=== PATIENT | male | born 1940 | race Caucasian/White ===

== ENCOUNTER 2018-03-28 08:36 | Inpatient (IN) | payer MEDICARE, OTHER ==
[~2018-03-28] VITALS: Ht 180.3 cm; Wt 73.5 kg
[2018-03-28 09:40] VITALS: BP 114/63
[2018-03-28] MEDS ORDERED: ELIQUIS5 MG PO (09:58)
[2018-03-28] MEDS ORDERED: COZAAR 25 MG TA25 M2 PO (09:59)
[2018-03-28] MEDS ORDERED: COREG6.25 MG PO (09:59)
[2018-03-28] MEDS ORDERED: PROSCAR 5MG TABL5 MG PO (10:00)
[2018-03-28] MEDS ORDERED: ALDACTONE25 MG PO (10:00)
[2018-03-28] MEDS ORDERED: FLOMAX0.4 MG PO (10:01)
[2018-03-28] MEDS ORDERED: SIMVASTATIN40 MG PO (10:02)
[2018-03-28] MEDS ORDERED: ZOCOR20 MG PO (10:02)
[2018-03-28] MEDS ORDERED: LASIX 20 MG TAB20 MG PO (10:03)
[2018-03-28] MEDS ORDERED: CLARITIN10 MG PO (10:04)
[2018-03-28 10:14] LABS: HEMATOCRIT 41.6 % (42.0-52.0); HEMOGLOBIN 13.6 gm/dL (14.0-18.0); MCH 28.4 pg (26.0-34.0); MCHC 32.7 g/dL (28.0-37.0); MCV 86.9 fL (80.0-100.0); MPV 9.5 fl. (7.2-11.1); RBC 4.79 mil/uL (4.50-6.00); RDW-CV 15.7 % (10.5-14.5); WBC 8.1 thou/uL (4.0-11.0)
[2018-03-28 10:22] LABS: ANION GAP 4 mmol/L (7-16); BUN 18 mg/dL (7-18); CALCIUM 8.8 mg/dL (8.5-10.1); CHLORIDE 104 mmol/L (98-107); CO2 32 mmol/L (21-32); CREATININE 1.2 mg/dL (0.6-1.3); GLUCOSE 91 mg/dL (70-99); POTASSIUM 4.3 mmol/L (3.5-5.1); SODIUM 140 mmol/L (136-145)
[2018-03-28 10:26] LABS: ALBUMIN 3.3 g/dL (3.4-5.0); ALKALINE PHOSPHATASE 61 U/L (46-116); CHOLESTEROL 102 mg/dL (<200); HDL CHOLESTEROL 41 mg/dL (>40); LDL CHOLESTEROL 38 mg/dL (<100); SERUM ASSESSMENT Clear; SGOT 14 U/L (15-37); SGPT 26 U/L (30-65); TC:HDL 2.5 Ratio (Not establshd); TOTAL BILIRUBIN 0.5 mg/dL (<0.1-1.0); TOTAL PROTEIN 6.6 g/dL (6.4-8.2); TRIGLYCERIDE 115 mg/dL (<150); VLDL 23 mg/dL (<40)
--- NOTE | 2018-03-28 11:01 | NUR ---
PT IS A DIRECT ADMIT FROM CARDIOLOGY HERE FOR AMIODARONE LOADING, PT IS ALERT AND ORIENTED X 4 PT IS UP AD RAVI STEADY GAIT PT IS NOT A FALL RISK, PT IS AFIB ON THE MONITOR, ADMISSION DONE MEDS RECONCILED IV PLACED IN R AC, PT MAY HAVE A DEAN CARDIOVERSION 03/31/18/, WILL CONTINUE TO MONITOR
[2018-03-28 12:30] VITALS: BP 116/45
[2018-03-28 16:00] VITALS: BP 100/58
--- NOTE | 2018-03-28 17:17 | EKG ---
[place] [address] ELECTROCARDIOGRAM REPORT Name: PAT WEAVER Room: [address] ADM IN .R.#: [id number] Admission: 03/28/18 Attend Phys: Latrell Ball MD, Discharge: Date of : 40 Report #: [id number] THIS REPORT FOR: //name// [facility] Test Date: 2018-03-28 Test Time: 12:08:36 Pat Name: PAT WEAVER Department: Room: [address] Gender: M Water Purifier: : 1940 Requested By: Latrell Ball Order Number: [id number] Sarita MD: Tu Ramos Measurements Intervals [place] Rate: 61 P: [place]: QRS: -51 QRSD: 134 T: 110 QT: 435 QTc: 439 Interpretive Statements Atrial flutter with predominant 4:1 AV block Ventricular premature complex Left bundle branch block No previous ECG available for comparison Electronically Signed On 03-28-2018 17:17:18 CDT by Tu Ramos [email or web address] <ELECTRONICALLY SIGNED> By: Tu Ramos MD, [facility] 03/28/18 1717 1208 1208 Tu Ramos MD, [facility] /EPI
[2018-03-28 20:00] VITALS: BP 101/54
[2018-03-28 23:50] VITALS: BP 99/42
[2018-03-29 04:01] VITALS: BP 92/42
[2018-03-29 07:55] VITALS: BP 115/73
--- NOTE | 2018-03-29 07:55 | NUR ---
RECIEVED REPORT FROM ISABEL AND ASSUMED CARE OF PT @ 8502.PT IS A/O X4,VSS,TRACING AFIB WITH PVCS ON MONITOR.LUNG SOUNDS ARE CLEAR.LAST BM WAS YESTERDAY.IV RIGHT AC PATENT AND SALINE LOCKED.PT IS CALM AND COOPERATIVE WITH NO C/O PAIN AT TIME OF ASSESSMENT.PT HAD SOME CONCERNS ABOUT DOSAGE CHANGE OF HIS STATIN.AFTER SEEING CARDIOLOGY PT WILL HAVE DEAN WITH CARDIOVERSION TOMORROW.PT HAS BEEN INFORMED OF PLAN OF CARE AND COMMUNICATES UNDERSTANDING.PT IS UP AD RAVI IN ROOM.PT LEFT RESTING IN BED WITH CALL LIGHT IN PLACE.WILL CONTINUE TO MONITOR. PT WENT TO BIG SHOWER AND SHOWERED INDEPENTENTLY THIS AM.URINE SAMPLE COLLECTED.
--- NOTE | 2018-03-29 11:59 | NUR ---
Pt is A&O. Resides at home with his . Independent and active. No DME. No hx of HH or SNF. Goal is to return home once medically stable. No needs anticipated.
[2018-03-29 12:25] VITALS: BP 95/56
[2018-03-29 16:22] VITALS: BP 108/60
--- NOTE | 2018-03-29 16:40 | NUR ---
VSS,CARDIAC MONITORING IN PLACE WITH NO CHANGES THIS SHIFT.PT REMAINS ON ROOM AIR.PT PROGRESSING TOWARDS GOALS.PT HAS DENIED PAIN ALL SHIFT.IV PATENT AND SALINE LOCKED. PT WILL BE NPO AT MIDNIGHT FOR DEAN WITH CARDIOVERSION IN AM.CONSENT IN CHART.PT INFORMED OF PLAN OF CARE AND COMMUNICATES UNDERSTANDING.HOURLY ROUNDING COMPLETED FOR PT SAFETY.CALL LIGHT WITHIN REACH.WILL CONTINUE TO MONITOR PT FOR DURATION OF SHIFT.
[2018-03-29 20:00] VITALS: BP 117/66
[2018-03-30] VITALS (7 sets, daily range): BP systolic 98–117; BP diastolic 55–72
--- NOTE | 2018-03-30 04:59 | NUR ---
PT CARE ASSUMED AFTER REPORT. ASSESSMENT COMPLETE. AFIB ON MONITOR. NPO FOR DEAN AND CARDIOVERSION. UP AD RAVI WITH STEADY GAIT. CALL LIGHT IN REACH. BED IN LOWEST POSITION. DENIES PAIN. PROGRESSING TOWARDS SOME GOALS.
--- NOTE | 2018-03-30 13:53 | NUR ---
RECEIVED PT CARE 0700. PT IS ALERT AND ORIENTED X4. VSS. CLINICAL SPECIALIST MEDICAL DEVICE TRACING SR WITH 1ST DEGREE AND BBB. EKG DONE AND ON CHART. HE DENIES PAIN. NO SOA. AM ASSESSMENT CHARTED. MEDS PER JAN. PATIENT UP AD RAVI IN ROOM. GAIT IS STEADY. NPO FOR POTENTIAL CARDIOVERSION TODAY. PATIENT CONTINUES TO BE IN SR. CARDIOLOGY NOTIFIED. RESUMED PATIENTS PREVIOUS HEART HEALTHY DIET AND ORDERED THE PATIENT A LUNCH TRAY. WAITING FOR CARDIOLOGY TO ROUND ON THE PATIENT. WILL CONTINUE TO MONITOR.
[2018-03-30] MEDS ORDERED: PACERONE 200 M200 M1 PO (16:40)
--- NOTE | 2018-03-30 17:30 | NUR ---
RECEIVED DISCHARGE ORDERS PER DR SHELBY. NEW SCRIPT GIVEN FOR AMIODARONE WITH MED INFORMATION SHEETS. IV DISCONTINUED. HEALTH CARE FACILITIES INSPECTOR REMOVED AND RETURNED TO NURSE'S DESK. EDUCATED PT ON F/U APPT WITH DR SHELBY. TONIGHT'S DOSE OF AMIODARONE GIVEN PER PATIENT'S REQUEST. DR SHELBY OK WITH DC TODAY. ALL PATIENTS BELONGINGS ARE PACKED AND LEAVING WITH PATIENT. PATIENT DENIES ANY QUESTIONS OR CONCERNS. HE IS LEAVING VIA AMBULATORY PER HIS REQUEST.
--- NOTE | 2018-03-31 17:05 | EKG ---
[place] [address] ELECTROCARDIOGRAM REPORT Name: WEAVERPAT Venegas Room: [address] DIS IN .R.#: [id number] Admission: 03/28/18 Attend Phys: Latrell Ball MD, Discharge: 03/30/18 Date of : 40 Report #: [id number] THIS REPORT FOR: //name// [facility] Test Date: 2018-03-30 Test Time: 08:39:37 Pat Name: PAT WEAVER Department: Room: [address] Gender: M Attraction Worker: : 1940 Requested By: Cabrera Ventura Order Number: [id number] Sarita MD: Yohannes Erazo Measurements Intervals [place] Rate: 81 P: -84 DC: 266 QRS: -56 QRSD: 138 T: 94 QT: 443 QTc: 515 Interpretive Statements Sinus or ectopic atrial rhythm Prolonged DC interval RBBB and LAFB LVH with secondary repolarization abnormality Anterior ST elevation, probably due to LVH Baseline wander in lead(s) V2 Compared to ECG 03/28/2018 12:08:36 Ectopic atrial rhythm now present First degree AV block now present Left anterior fascicular block now present Right bundle-branch block now present Left ventricular hypertrophy now present Electronically Signed On 03-31-2018 17:04:53 CDT by Yohannes Erazo [email or web address] <ELECTRONICALLY SIGNED> By: Yohannes Erazo MD, [facility] 03/31/18 1704 0839 0839 Yohannes Erazo MD, [facility] /EPI
--- NOTE | 2018-04-02 08:45 | D ---
[facility] [address] [place] [address] DISCHARGE SUMMARY Name: PAT WEAVER Room: [address] IN M.R.#: [id number] Admission: 03/28/18 Attend Phys: Latrell Ball MD, Discharge: 03/30/18 Date of : 40 Report #: [id number] THIS REPORT FOR: //name// CC: Jamal Ball MD [facility] Latrell Ball DISCHARGE DIAGNOSES: 1. Paroxysmal atrial fibrillation. 2. Dilated cardiomyopathy. 3. Chronic systolic congestive heart failure. 4. Hyperlipidemia. 5. History of premature ventricular contractions. HOSPITAL COURSE: The patient was admitted to the hospital with persistent atrial fibrillation. He was loaded with amiodarone. He spontaneously converted to sinus rhythm. The patient's hospitalization was unremarkable. At the time of discharge, she is in sinus rhythm. DISCHARGE MEDICATIONS: Carvedilol 6.25 mg p.o. b.i.d.; digoxin 125 mcg p.o. daily; Proscar 5 mg daily; furosemide 20 mg on Tuesday, Tuesday, Tuesday; losartan 25 mg q. evening; Zocor 40 mg q.a.m., 20 mg q.p.m.; spironolactone 25 mg daily; Flomax 0.4 mg daily. DISPOSITION: The patient to follow up with myself in the Cardiology office in 4 weeks. <ELECTRONICALLY SIGNED> By: Cabrera Ventura MD, [facility] 04/02/18 0845 1641 1702[facility] Center[facility] Ventura MD, [facility]AMIN /nt
[2018-07-04] MEDS ORDERED: CRESTOR10 MG PO (12:37)
[2018-07-04] MEDS ORDERED: LASIX 20 MG TAB20 MG PO (14:35)
[2018-07-04] MEDS ORDERED: PACERONE 200 M200 M1 PO (14:44)
== END 2018-03-30 17:10 | disposition home or self-care (01) | DRG 309 ==
LOC: M.2W 08:36
PROVIDERS: ADMIT Internal Medicine
DX: I48.0 Paroxysmal atrial fibrillation (principal); I50.22 Chronic systolic (congestive) heart failure; E78.5 Hyperlipidemia, unspecified; I42.0 Dilated cardiomyopathy

== ENCOUNTER 2018-06-08 16:34 | Observation (INO) | payer MEDICARE, OTHER ==
[~2018-06-08] VITALS: Ht 180.3 cm; Wt 78.5 kg
[~2018-06-08 16:34] MED LIST: ALDACTONE25 MG PO; CLARITIN10 MG PO; COREG6.25 MG PO; COZAAR 25 MG TA25 M2 PO; ELIQUIS5 MG PO; FLOMAX0.4 MG PO; LASIX 20 MG TAB20 MG PO; PACERONE 200 M200 M1 PO; PROSCAR 5MG TABL5 MG PO; SIMVASTATIN40 MG PO; ZOCOR20 MG PO
[2018-06-08 16:36] VITALS: BP 126/76
[2018-06-08 17:01] LABS: ABSOLUTE EOSINOPHILS 0.2 thou/uL (0.0-0.7); ABSOLUTE LYMPHOCYTES 2.3 thou/uL (0.8-5.3); ABSOLUTE MONOCYTES 0.8 thou/uL (0.0-1.2); ABSOLUTE NEUTROPHILS 4.5 thou/uL (1.6-8.1); BASOPHILS 0.3 %; EOSINOPHILS 2.3 %; HEMATOCRIT 43.5 % (42.0-52.0); HEMOGLOBIN 14.2 gm/dL (14.0-18.0); LYMPHOCYTES 29.7 %; MCH 28.3 pg (26.0-34.0); MCHC 32.8 g/dL (28.0-37.0); MCV 86.5 fL (80.0-100.0); MONOCYTES 10.3 %; MPV 8.3 fl. (7.2-11.1); NUCLEATED RBCS 0 /100WBC; PLATELET COUNT* 308 thou/uL (150-400); POLYS 57.4 %; RBC 5.03 mil/uL (4.50-6.00); RDW-CV 16.9 % (10.5-14.5); WBC 7.8 thou/uL (4.0-11.0)
[2018-06-08 17:05] LABS: ANION GAP 3 mmol/L (7-16); BUN 21 mg/dL (7-18); CALCIUM 8.8 mg/dL (8.5-10.1); CHLORIDE 101 mmol/L (98-107); CO2 30 mmol/L (21-32); CREATININE 1.4 mg/dL (0.6-1.3); GLUCOSE 93 mg/dL (70-99); POTASSIUM 4.3 mmol/L (3.5-5.1); SODIUM 134 mmol/L (136-145)
[2018-06-08 17:12] LABS: APTT 29.1 Seconds (25.0-31.3)
[2018-06-08 17:20] LABS: ALBUMIN 3.4 g/dL (3.4-5.0); ALKALINE PHOSPHATASE 77 U/L (46-116); LIPASE 370 U/L (73-393); NT-PRO BRAIN NAT PEPTIDE 5008 pg/mL (<300); SGOT 19 U/L (15-37); SGPT 25 U/L (30-65); TOTAL BILIRUBIN 0.3 mg/dL (<0.1-1.0); TOTAL PROTEIN 7.1 g/dL (6.4-8.2); TROPONIN-I LEVEL <0.06 ng/mL (<0.06)
--- NOTE | 2018-06-08 18:25 | NUR ---
er admit to rm 202 telephone report given patient geovanni rm and oriented to mrm and call light vital signs taken and stable denies pain
[2018-06-08 18:26] VITALS: BP 109/64
[2018-06-08 20:00] VITALS: BP 95/52
--- NOTE | 2018-06-08 20:15 | NUR ---
RECEIVED REPORT AND ASSUMED CARE OF PT, ASSESSMENT COMPLETED. TELEMTRY APPLIED SHOWING A-FIB WITH PVC. AMINO GTT INFUSING. SEE ADMISSION ASSESSMENT AND HX. WILL CONT TO MONITOR AND ASSIST NEEDED.
[2018-06-09] VITALS: BP 107/61
[2018-06-09 04:00] VITALS: BP 102/55
--- NOTE | 2018-06-09 06:08 | NUR ---
AWAKE MOST OF NIGHT BUT RESTING IN BED QUIETLY. TELEMETRY CONT TO SHOW A-FIB WITH PVC, RATE DOES INCREASE WHEN UP TO BR. AMINO GTT CONT. HS GOAL OF SAFETY ACHIEVED. HOURLY ROUNDING OBSERVED.
--- NOTE | 2018-06-09 07:25 | NUR ---
CHANGE OF SHIFT BEDSIDE REPORT PATIENT SEEN IN BED ASLEEP ASSUMED PATIENT CARE
[2018-06-09 08:00] VITALS: BP 113/57
--- NOTE | 2018-06-09 08:30 | H ---
[place] [address] HISTORY AND PHYSICAL Name: PAT WEAVER Room: [address] Serene#: [id number] Admission: 06/08/18 Attend Phys: Cabrera Ventura MD Discharge: Date of : 40 Report #: [id number] THIS REPORT FOR: //name// CC: Jamal Ventura DATE OF SERVICE: 06/08/2018 INDICATION: Atrial arrhythmias with rapid ventricular response. HISTORY OF PRESENT ILLNESS: The patient is a very pleasant 77-year-old gentleman who is known to myself. He has a nonischemic cardiomyopathy with an ejection fraction of 30%-35% by echocardiogram 3 months ago. He has a history of paroxysmal atrial fibrillation and has been on amiodarone for rhythm control. He is chronically anticoagulated with Eliquis and having no bleeding problems. He states that this morning, he woke up and felt unsteady. He felt fatigued. He took his blood pressure, noted his pulse rate to be 150. He continued to feel fatigued and continued to have a rapid pulse rate. He presented to the Emergency Room for further evaluation. Monitor shows a wide complex tachycardia. The patient has an underlying bundle branch block. He is not having any chest pain or significant shortness of breath. He is without other cardiac complaint at this time. PAST MEDICAL HISTORY: 1. Nonischemic cardiomyopathy. 2. Chronic systolic heart failure. 3. Hyperlipidemia. 4. Paroxysmal atrial fibrillation. 5. History of symptomatic PVCs. 6. Chronic anticoagulation. FAMILY HISTORY: Noncontributory. SOCIAL HISTORY: The patient quit smoking remotely. He does not drink alcohol. He is . His is with him: A 14-point review of systems as per HPI, otherwise unremarkable. PHYSICAL EXAMINATION: VITAL SIGNS: Blood pressure 123/62, pulse rate 150. GENERAL: This is a pleasant gentleman who does not appear to be in acute distress. HEENT: The patient is wearing glasses. Extraocular muscles intact. Mucous membranes moist. NECK: Shows no obvious jugular venous distention. [place] [address] HISTORY AND PHYSICAL Name: PAT WEAVER Room: [address]R.#: [id number] Admission: 06/08/18 Attend Phys: Cabrera Ventura MD Discharge: Date of : 40 Report #: [id number] CHEST: Reveals clear lung hammer without wheezes or rales. CARDIAC: Reveals a tachycardic rhythm that is regular, without gallop or murmur. ABDOMEN: Reveals normal bowel sounds. The abdomen is soft, nontender. EXTREMITIES: Show no edema. Peripheral pulses are weak, but palpable. SKIN: Warm and dry. LABORATORY DATA: Current labs are reviewed. Sodium 134, potassium 4.3, chloride 101, bicarbonate 30, BUN 21, creatinine 1.4, serum glucose 93. EGFR 49. LFTs within normal limits. Troponin pending. NT-proBNP pending. CBC shows a white count of 7.8, hemoglobin 14.2, platelet count 308,000. Chest x-ray pending. A 12-lead EKG shows a wide complex tachycardia with a regular rhythm at a rate of 150 beats per minute. IMPRESSION AND RECOMMENDATIONS: 1. Tachycardia, possibly atrial flutter with 2:1 conduction. The patient has an underlying bundle branch block with known atrial arrhythmias in the past. He has been bolused with amiodarone in the Emergency Room. We will admit to the hospital for telemetry observation and continue amiodarone IV drip. Serial troponins to rule out myocardial infarction. Continue Eliquis 5 mg twice daily for anticoagulation. 2. Paroxysmal atrial fibrillation. The patient had been maintaining sinus rhythm on amiodarone. We will continue amiodarone in IV fashion at this time. Continue Eliquis. Consider DC cardioversion if the patient fails to convert. 3. Nonischemic cardiomyopathy. Continue current medications outlined above. We will titrate if possible while in the hospital. 4. Hypercoagulable state secondary to atrial arrhythmias. The patient is on Eliquis. We will continue as outlined above. 5. Acute renal insufficiency, likely due to tachyarrhythmia and leading to decreased perfusion. I suspect this will improve with rate control and/or rhythm control. <ELECTRONICALLY SIGNED> By: Cabrera Ventura MD, [facility] 06/09/18 0830 1713 1734Mickarly Ventura MD, [facility] /nt
[2018-06-09 11:19] VITALS: BP 102/55
[2018-06-09 11:45] VITALS: BP 98/58
--- NOTE | 2018-06-09 13:22 | EKG ---
[place] [address] ELECTROCARDIOGRAM REPORT Name: PAT WEAVER Room: [address] M.R.#: [id number] Admission: 06/08/18 Attend Phys: Cabrera Ventura MD Discharge: Date of : 40 Report #: [id number] THIS REPORT FOR: //name// [facility] ED Test Date: 2018-06-08 Test Time: 16:58:39 Pat Name: PAT WEAVER Department: Room: [facility] Gender: M Pedal Assembler: : 1940 Requested By: Otilia Vaughn Order Number: [id number] MD: Tu Ramos Measurements Intervals [place] Rate: 75 P: [place]: QRS: -55 QRSD: 148 T: 95 QT: 382 QTc: 427 Interpretive Statements Atrial fibrillation Left bundle branch block Electronically Signed On 06-09-2018 13:22:34 CDT by Tu Ramos [email or web address] <ELECTRONICALLY SIGNED> By: Tu Ramos MD, [facility] 06/09/18 1322 1658 1658 Tu Ramos MD, [facility] /EPI
--- NOTE | 2018-06-09 13:22 | EKG ---
[place] [address] ELECTROCARDIOGRAM REPORT Name: PAT WEAVER Room: [address] M.R.#: [id number] Admission: 06/08/18 Attend Phys: Cabrera Ventura MD Discharge: Date of : 40 Report #: [id number] THIS REPORT FOR: //name// [facility] ED Test Date: 2018-06-08 Test Time: 16:40:25 Pat Name: PAT WEAVER Department: Room: [facility] Gender: M Trolley Wire Installer: : 1940 Requested By: Otilia Vaughn Order Number: [id number] MD: Tu Ramos Measurements Intervals [place] Rate: 150 P: 0 [place]: QRS: -58 QRSD: 148 T: 105 QT: 335 QTc: 530 Interpretive Statements Extreme tachycardia with wide complex left axis nonspecific st changes Compared to ECG 03/30/2018 08:39:37 rate increased Electronically Signed On 06-09-2018 13:22:00 CDT by Tu Ramos [email or web address] <ELECTRONICALLY SIGNED> By: Tu Ramos MD, [facility] 06/09/18 1322 1640 1640 Tu Ramos MD, [facility] /EPI
--- NOTE | 2018-06-09 13:28 | EKG ---
[place] [address] ELECTROCARDIOGRAM REPORT Name: PAT WEAVER Room: [address] M.R.#: [id number] Admission: 06/08/18 Attend Phys: Cabrera Ventura MD Discharge: Date of : 40 Report #: [id number] THIS REPORT FOR: //name// [facility] Test Date: 2018-06-09 Test Time: 08:13:28 Pat Name: PAT WEAVER Department: Room: [facility] Gender: M Regeneration Operator: : 1940 Requested By: Cabrera Ventura Order Number: [id number] Sarita MD: Tu Ramos Measurements Intervals [place] Rate: 72 P: 229 HI: 238 QRS: -56 QRSD: 150 T: 115 QT: 451 QTc: 494 Interpretive Statements Sinus or ectopic atrial rhythm Prolonged HI interval left axis nonspecific t wave changes Baseline wander in lead(s) III Electronically Signed On 06-09-2018 13:27:58 CDT by Tu Ramos [email or web address] <ELECTRONICALLY SIGNED> By: Tu Ramos MD, [facility] 06/09/18 1327 2 2 Tu Ramos MD, [facility] /EPI
[2018-06-09 15:52] VITALS: BP 98/63
--- NOTE | 2018-06-09 18:18 | NUR ---
PATIENT DISCHARGED TO HOME ALL DC INSTRUCTIONS GIVEN AND ACKNOWLEDGED AND SIGNED COPIES GIVEN IV AND HEART MONITOR REMOVED PERSONAL BELONGINGS RETURNED ASSISTED OUT VIA WC GOOD CONDITION TO WAITING CAR
--- NOTE | 2018-06-13 07:19 | D ---
[facility] [address] [place] [address] DISCHARGE SUMMARY Name: MEGPAT Tiarra Room: [address] Leena Cast#: [id number] Admission: 06/08/18 Attend Phys: Cabrera Ventura MD Discharge: 06/09/18 Date of : 40 Report #: [id number] THIS REPORT FOR: //name// CC: KAROL Ventura DISCHARGE DIAGNOSES: 1. Atrial flutter with 2:1 conduction. 2. Atrial fibrillation with rapid ventricular response rate. 3. Nonischemic cardiomyopathy. 4. Chronic systolic heart failure that is well compensated. 5. History of symptomatic premature ventricular complexes. 6. Hypercoagulable state secondary to atrial fibrillation. 7. Acute renal insufficiency secondary to tachycardia, resolved. HOSPITAL COURSE: The patient was admitted to the hospital overnight with atrial flutter with rapid ventricular response rate. He was placed on an amiodarone drip after an amiodarone bolus. He did spontaneously convert to sinus rhythm. At the time of discharge, he was in sinus rhythm with premature atrial contractions. His amiodarone dose was increased to 400 mg twice daily to be continued for 1 week post-discharge. He will then resume 200 mg daily. The remainder of his medications will remain the same. His hospital course was unremarkable. DISCHARGE MEDICATIONS: Amiodarone 400 mg p.o. b.i.d. times a week, then 200 mg daily. Eliquis 5 mg p.o. b.i.d., carvedilol 6.25 mg p.o. b.i.d., finasteride 5 mg daily, furosemide 20 mg every other day, loratadine 20 mg every other day, losartan 25 mg daily, spironolactone 25 mg daily, Flomax 0.4 mg every evening. DISPOSITION: The patient to follow up with cardiology in 2 months. <ELECTRONICALLY SIGNED> By: Cabrera Ventura MD, [facility] 06/13/18 0719 1720 1755Mickarly Ventura MD, [facility] /nt
[2018-07-04] MEDS ORDERED: CRESTOR10 MG PO (12:37)
[2018-07-04] MEDS ORDERED: LASIX 20 MG TAB20 MG PO (14:35)
[2018-07-04] MEDS ORDERED: PACERONE 200 M200 M1 PO (14:44)
== END 2018-06-09 17:56 | disposition home or self-care (01) ==
LOC: M.ERS 16:34 → M.TBA-ER 17:22 → M.2W 17:22
PROVIDERS: Personal Emergency Response Attendant; ADMIT Internal Medicine Cardiovascular Disease
DX: I48.92 Unspecified atrial flutter (principal); I48.0 Paroxysmal atrial fibrillation; I42.9 Cardiomyopathy, unspecified; I49.9 Cardiac arrhythmia, unspecified; I11.0 Hypertensive heart disease with heart failure; I50.22 Chronic systolic (congestive) heart failure; D68.59 Other primary thrombophilia; E78.5 Hyperlipidemia, unspecified; N28.9 Disorder of kidney and ureter, unspecified; R00.0 Tachycardia, unspecified; Z79.01 Long term (current) use of anticoagulants; Z98.890 Other specified postprocedural states

== ENCOUNTER → 2018-07-04 | Outpatient (CLI) | payer MEDICARE, OTHER ==
[2018-07-04] VITALS (8 sets, daily range): BP systolic 101–127; BP diastolic 58–79
[~2018-07-04] MED LIST changes: +CRESTOR10 MG PO
--- NOTE | 2018-07-04 14:56 | EKG ---
[place] [address] ELECTROCARDIOGRAM REPORT Name: PAT WEAVER Room: [facility]#: [id number] Admission: 07/04/18 Attend Phys: Cabrera Ventura MD Discharge: Date of : 40 Report #: [id number] THIS REPORT FOR: //name// [facility] Test Date: 2018-07-04 Test Time: 14:16:12 Pat Name: PAT WEAVER Department: Room: Gender: M Meeting Specialist: : 1940 Requested By: Cabrera Ventura Order Number: [id number] Reading MD: Cabrera Ventura Measurements Intervals [place] Rate: 66 P: -10 DE: 251 QRS: -49 QRSD: 150 T: 87 QT: 455 QTc: 477 Interpretive Statements Sinus rhythm Prolonged DE interval Left bundle branch block Baseline wander in lead(s) V4,V6 Compared to ECG 06/09/2018 08:13:28 no significant changes noted Electronically Signed On 07-04-2018 14:56:36 CDT by Cabrera Ventura [email or web address] <ELECTRONICALLY SIGNED> By: Cabrera Ventura MD, [facility] 07/04/18 1456 1416 1416 Cabrera Ventura MD, [facility] /EPI
--- NOTE | 2018-07-13 16:23 | CARD ---
[address] [address] CARDIAC CATH REPORT Name: PAT WEAVER Room: [facility]#: [id number] Admission: 07/04/18 Attend Phys: Cabrera Ventura MD Discharge: Date of : 40 Report #: [id number] THIS REPORT FOR: //name// CC: Jamal Ventura INDICATION: Persistent atrial fibrillation. PROCEDURE: DC cardioversion. DESCRIPTION OF PROCEDURE: After informed consent was obtained, the patient was brought to the cardiac holding area. Conscious sedation was achieved with intravenous Versed and fentanyl. The patient received 2 mg of intravenous Versed and 50 mg of intravenous fentanyl. Once the patient was adequately sedated, he was cardioverted from atrial fibrillation to normal sinus rhythm with a single biphasic shock of 300 joules. The patient tolerated the procedure well and without complication. IMPRESSION: 1. Persistent atrial fibrillation. 2. Successful direct current cardioversion to normal sinus rhythm. <ELECTRONICALLY SIGNED> By: Cabrera Ventura MD, [facility] 07/13/18 1623 1426 2332[facility] Ventura MD, [facility] /nt
== END | disposition home or self-care (01) ==
LOC: M.CL 11:27
DX: I48.91 Unspecified atrial fibrillation (principal); I48.92 Unspecified atrial flutter; Z88.8 Allergy status to other drugs, medicaments and biological substances; Z79.899 Other long term (current) drug therapy; Z79.82 Long term (current) use of aspirin

== ENCOUNTER 2019-05-15 14:13 | Inpatient (IN) | payer MEDICARE, OTHER ==
[2019-05-15] VITALS (43 sets, daily range): BP systolic 72–213; BP diastolic 6–175
[~2019-05-15] VITALS: Ht 180.3 cm; Wt 86.7 kg
[~2019-05-15 14:13] MED LIST changes: +FINASTERIDE5 MG PO; +K-DUR10 MEQ; +ZAROXOLYN 5MG TA5 MG PO
--- NOTE | 2019-05-15 14:23 | NUR ---
PT ON HOSPICE. [facility] [phone] RUBBER ENGRAVER RN-JOHAN
[2019-05-15] MEDS ORDERED: TIROSINT50 MCG PO (14:31)
[2019-05-15] MEDS ORDERED: TOPROL XL50 MG PO (14:32)
[2019-05-15] MEDS ORDERED: PERFOROMIS20 MCG/2 M PO (14:32)
[2019-05-15] MEDS ORDERED: POTASSIUM20 PO (14:33)
[2019-05-15] MEDS ORDERED: METOLAZONE 2.52.5 MG PO (14:33)
[2019-05-15] MEDS ORDERED: MEXILETINE HCL200 M1 PO (14:33)
--- NOTE | 2019-05-15 15:17 | NUR ---
DR. SARMIENTO DISCUSSED NEED FOR CENTRAL LINE. PT STATES VERBAL UNDERSTANDING OF PROCEDURE. DR. SARMIENTO, PT AND PT FAMILY, DISCUSSED RISK FACTORS AND PICC LINE OTHER OPTION. IV INFUSION NURSE CALLED FOR CONSULT FOR PICC LINE.
--- NOTE | 2019-05-15 15:35 | NUR ---
RECENT PACEMAKER PLACEMENT MAKES PICC LINE PLACEMENT CONTRAINDICATED.
[2019-05-15 15:47] LABS: BE -2.9 mmol/L (-2 to +3); PCO2 36.3 mmHg (35.0-45.0); PO2 92.9 mmHg (75.0-100.0); pH 7.391 (7.340-7.450)
[2019-05-15 15:51] LABS: ABSOLUTE BASOPHILS 0.1 thou/uL (0.0-0.2); ABSOLUTE EOSINOPHILS 0.1 thou/uL (0.0-0.7); ABSOLUTE LYMPHOCYTES 1.1 thou/uL (0.8-5.3); ABSOLUTE MONOCYTES 0.9 thou/uL (0.0-1.2); ABSOLUTE NEUTROPHILS 9.7 thou/uL (1.6-8.1); BASOPHILS 0.7 %; EOSINOPHILS 0.5 %; HEMATOCRIT 35.8 % (42.0-52.0); HEMOGLOBIN 11.9 gm/dL (14.0-18.0); LYMPHOCYTES 9.5 %; MCH 28.6 pg (26.0-34.0); MCHC 33.3 g/dL (28.0-37.0); MCV 85.9 fL (80.0-100.0); MONOCYTES 7.6 %; MPV 10.2 fl. (7.2-11.1); NUCLEATED RBCS 0 /100WBC; PLATELET COUNT* 220 thou/uL (150-400); POLYS 81.7 %; RBC 4.17 mil/uL (4.50-6.00); RDW-CV 16.9 % (10.5-14.5); WBC 11.9 thou/uL (4.0-11.0)
--- NOTE | 2019-05-15 15:53 | NUR ---
CENTRAL LINE PLACEMENT NEEDED FOR VASOPRESSORS DUE TO LOW BP. CONSENT REVIEWED WITH PT AND SIGNED BY PT PER PT REQUEST. PT ALERT AND ORIENTED X4 AT THIS TIME, VERBALLY CONSENTS TO PROCEDURE. DR. SARMIENTO IN ROOM, SETTING UP STERILE FIELD AND SUPPLIES FOR CENTRAL LINE PROCEDURE. PT FAMILY ASKED TO STEP INTO WAITING ROOM, STAFF WOULD GET THEM WHEN PROCEDURE WAS COMPLETE.
[2019-05-15 15:59] LABS: APTT 34.8 Seconds (25.0-31.3); INR 1.6; PROTIME 16.1 Seconds (9.20-11.50)
[2019-05-15 16:01] LABS: CALCIUM 8.4 mg/dL (8.5-10.1); CREATININE 4.7 mg/dL (0.6-1.3); POTASSIUM 5.4 mmol/L (3.5-5.1)
[2019-05-15 16:08] LABS: ALBUMIN 2.9 g/dL (3.4-5.0); MAGNESIUM 2.8 mg/dL (1.8-2.4); TOTAL BILIRUBIN 0.9 mg/dL (<0.1-1.0); TOTAL PROTEIN 6.2 g/dL (6.4-8.2); TROPONIN-I LEVEL 0.06 ng/mL (<0.06)
--- NOTE | 2019-05-15 16:40 | NUR ---
CENTRAL LINE PLACED BY DR. BARNES IN RIGHT FEMORAL. SECURED WITH SUTURES. DRESSED WITH LARGE TEGADERM. STERILE FEILD MAINTAINED THROUGHOUT PROCEDURE. THIS NURSE REMAINED AT BEDSIDE THROUGHOUT THE PROCEDURE. PT O2 DROPPED TO 89% DURING PROCEDURE AND WAS INCREASED TO 5 LITERS VIA NASAL CANNULA; O2 INCREASED TO 98% ON THE 5 LITERS.
--- NOTE | 2019-05-15 17:10 | NUR ---
RADIOLOGY AT BEDSIDE. DR. SARMIENTO CONFIRMED PLACEMENT OF CENTRAL LINE. OKAY TO USE CENTRAL LINE PER DR. SARMIENTO. LEVOPHED AT 5 MCG/MIN STARTED AT THIS TIME. BLOOD PRESSURE 71/42, HEART RATE 80, RESPIRATIONS 22, AND 98% ON 5 LITERS VIA NASAL CANNULA.
--- NOTE | 2019-05-15 17:30 | NUR ---
PT BP READING HIGH 162/109. REPEATED BP IN BILATERAL ARMS REMAINED HIGH. LEVOPHED TURNED OFF. DR. SARMIENTO MADE AWARE.
--- NOTE | 2019-05-15 17:40 | NUR ---
REPORT GIVEN TO MAUREEN ASCENCIO IN ICU. MAUREEN ASCENCIO TO ASSUME PT CARE AT THIS TIME.
[2019-05-15] MEDS ORDERED: LEVOTHYROXINE500 MCG PO (18:13)
--- NOTE | 2019-05-15 19:05 | NUR ---
1750 PATIENT ADMITTED TO ICU 5 PER CART FROM ER. SEE ADMISSION HISTORY AND ASSESSMENT. SPOUSE AT BEDSIDE. PATIENT IS RESTLESS AND PULLING AT LINES. PT ADMITS TO HALLUCINATIONS
--- NOTE | 2019-05-15 19:32 | NUR ---
[address] PIERRE REGARDING CONSULT AND ORDERS NOTED. PT IS RESTLESS AND PULLS AT SHEETS AND LINES. REORIENTS BRIEFLY AND THEN FORGETS. PT ADMITS TO HAVING VISUAL HALLUCINATIONS AND REACHES FOR THINGS THAT ARE NOT PRESENT. VARGAS CATHETER PLACED. SPOUSE IS AWARE OF PLOAN OF CARE AND GOALS. DPOA AND OUT OF HOSPITAL DNR SHEETS PLACED ON CHART.
[2019-05-15 20:48] LABS: URINE BLOOD TRACE (Negative); URINE CLARITY SL CLOUDY; URINE COLOR YELLOW; URINE GLUCOSE-RANDOM NEGATIVE (Negative); URINE KETONES TRACE (Negative); URINE LEUKOCYTES TRACE (Negative); URINE LEUKOCYTES-REFLEX TRACE (Negative); URINE NITRITE NEGATIVE (Negative); URINE NITRITE-REFLEX NEGATIVE (Negative); URINE PROTEIN 1+ (Negative); URINE SPECIFIC GRAVITY >= 1.030 (1.005-1.030); URINE UROBILINOGEN 0.2 E.U./dl (0.2-1.0)
[2019-05-15 20:54] LABS: ICTOTEST (BILI CONFIRMATORY) Negative (Negative); URINE BILIRUBIN 1+ (Negative)
[2019-05-15 21:02] LABS: SQUAMOUS NONE SEEN /LPF (0-3); URINE WBC-REFLEX 6-15 Few /HPF (0-5)
[2019-05-15 21:03] LABS: URINE RBC None Seen /HPF (0-2)
[2019-05-15 21:04] LABS: AMORPHOUS PHOSPHATES Moderate /LPF (None Seen); HYALINE CASTS 4-10 Moderate /LPF (None Seen)
[2019-05-15 21:06] LABS: MUCUS None Seen strn/LPF (None Seen)
[2019-05-16] VITALS (44 sets, daily range): BP systolic 55–144; BP diastolic 24–102
[2019-05-16 04:29] LABS: ABSOLUTE BASOPHILS 0.1 thou/uL (0.0-0.2); ABSOLUTE EOSINOPHILS 0.1 thou/uL (0.0-0.7); ABSOLUTE LYMPHOCYTES 1.5 thou/uL (0.8-5.3); ABSOLUTE NEUTROPHILS 10.1 thou/uL (1.6-8.1); BASOPHILS 0.5 %; EOSINOPHILS 0.8 %; HEMATOCRIT 35.2 % (42.0-52.0); HEMOGLOBIN 11.4 gm/dL (14.0-18.0); LYMPHOCYTES 11.5 %; MCH 27.7 pg (26.0-34.0); MCHC 32.3 g/dL (28.0-37.0); MCV 85.7 fL (80.0-100.0); MONOCYTES 7.8 %; MPV 10.5 fl. (7.2-11.1); NUCLEATED RBCS 0 /100WBC; PLATELET COUNT* 263 thou/uL (150-400); POLYS 79.4 %; RBC 4.11 mil/uL (4.50-6.00); RDW-CV 17.1 % (10.5-14.5); WBC 12.7 thou/uL (4.0-11.0)
[2019-05-16 04:48] LABS: ALBUMIN 2.5 g/dL (3.4-5.0); CALCIUM 8.1 mg/dL (8.5-10.1); CREATININE 5.1 mg/dL (0.6-1.3); MAGNESIUM 2.7 mg/dL (1.8-2.4); PHOSPHORUS* 7.9 mg/dL (2.5-4.9); POTASSIUM 5.2 mmol/L (3.5-5.1); TOTAL PROTEIN 5.5 g/dL (6.4-8.2)
--- NOTE | 2019-05-16 06:20 | NUR ---
REPORT RECIEVED FROM OFF GOING SHIFT AND CARE ASSUMMED. PT IS AAOX2 AND CONFUSED AND FORGETFUL AT TIMES. DR VANG HERE AND DISCUSSED WIHT PLAN OF CARE. CODE STATUS CHANGED TO DNR. MONITORS INTACT WITH ALARMS SET. PT IS VERY RESTLESS AND PULLING AT LINES AND UNDRESSING. PT BECAME INCREASING AGITATED SWINGING AT STAFF, ATTEMPTING TO GET OUT OF BED. PT MEDICATED OREDERED. PT HAS HAD LOW BP AND REMAINS ON PRESSORS SEE CHARTING FOR DETAILS. PT CURRENTLY RESTING QUIELTY IN NO ACUTE DISTRESS AT THIS TIME.WILL CONTINUE TO MONITOR
--- NOTE | 2019-05-16 10:28 | EKG ---
[place] [address] ELECTROCARDIOGRAM REPORT Name: WEAVERPAT Room: [address] ADM IN M.R.#: [id number] Admission: 05/15/19 Attend Phys: Saad Pacheco MD Discharge: Date of : 40 Report #: [id number] THIS REPORT FOR: //name// [facility] ED Test Date: 2019-05-15 Test Time: 15:45:16 Pat Name: PAT WEAVER Department: Room: [facility] Gender: M Dress Cap Maker: : 1940 Requested By: Otilia Vaughn Order Number: [id number] MD: Tu Ramos Measurements Intervals [place] Rate: 80 P: 137 ME: 134 QRS: -86 QRSD: 234 T: 98 QT: 486 QTc: 561 Interpretive Statements A-V dual-paced rhythm with some inhibition No further analysis attempted due to paced rhythm Compared to ECG 07/04/2018 14:16:12 paced rhythm now noted Electronically Signed On 05-16-2019 10:27:44 CDT by Tu Ramos [email or web address] <ELECTRONICALLY SIGNED> By: Tu Ramos MD, [facility] 05/16/19 1027 1545 1545 Tu Ramos MD, [facility] /EPI
--- NOTE | 2019-05-16 10:29 | NUR ---
PT RECORDED AT 0955. DECLARED BY THIS RN AND DAVY MONTOYA RN. FAMILY AT BEDSIDE AT TIME OF . DR VANG HERE AND AWARE OF . FATHER ANAYELI AND AMAN, MONITORING ANALYST NOTIFIED. [employer] NOTIFIED AND STATE TO RELEASE BODY TO HOME. PT HAD NO BELONGINGS HERE AT THE HOSPITAL. CURRENTLY AWAITING PACEMAKER COMPANY, [employer], TO TURN OFF PACEMAKER.
--- NOTE | 2019-05-16 10:29 | EKG ---
[place] [address] ELECTROCARDIOGRAM REPORT Name: MEGPAT JOHN Room: [address] ADM IN M.R.#: [id number] Admission: 05/15/19 Attend Phys: Saad Pacheco MD Discharge: Date of : 40 Report #: [id number] THIS REPORT FOR: //name// [facility] Test Date: 2019-05-15 Test Time: 18:27:13 Pat Name: PAT WEAVER Department: Room: [address] Gender: M [employer] Wire[employer]: UNKNOWN : 1940 Requested By: Otilia Vaughn Order Number: [id number] Sarita MD: Tu Ramos Measurements Intervals Oden Rate: 80 P: 85 OH: 51 QRS: 261 QRSD: 256 T: 97 QT: 491 QTc: 567 Interpretive Statements Atrial-ventricular dual-paced rhythm No further analysis attempted due to paced rhythm Electronically Signed On 05-16-2019 10:28:47 CDT by Tu Ramos [email or web address] <ELECTRONICALLY SIGNED> By: Tu Ramos MD, [facility] 05/16/19 1028 1827 26 Tu Ramos MD, FACC /EPI
--- NOTE | 2019-05-16 10:36 | NUR ---
CM MET WITH PT.'S FAMILY. THEY HAD QUESTIONS REGARDING HOME PROCESS. PT'S , DAUGHTERS AND BROTHER IN ROOM. THEY WANT [facility] [phone]. EXPLAINED WE WOULD CALL THE HOME WHEN THEY WERE READY TO LEAVE. HOME WOULD COME TO GET PT. HOME WOULD CONTACT TO MAKE APPT FOR ARRANGEMENTS. THEY SAID THEY WOULD BE LEAVING SOON. TOLD THEM THERE WAS NO HURRY AND NOT TO MARIO. PT. HAD BEEN ON [facility] PRIOR TO COMING TO HOSPITAL. CALLED TATY AT [phone] AND INFORMED HER PT.'S AND TIME.
--- NOTE | 2019-05-16 11:53 | NUR ---
home, [facility] here to transport to home. Security here to assist.
== END 2019-05-16 09:55 | DRG 871 ==
LOC: M.ERS 14:13 → M.ICU 17:19 → M.TBA-ER 17:19 → M.ICU 17:50 → M.TBA-ER 17:50 → M.ICU 17:50
PROVIDERS: Personal Emergency Response Attendant; ADMIT Family Medicine
PROC: 06HY33Z Insertion of Infusion Device into Lower Vein, Percutaneous Approach (ICD-10-PCS; principal; 2019-05-15)
DX: A41.9 Sepsis, unspecified organism (principal); I50.23 Acute on chronic systolic (congestive) heart failure; J96.00 Acute respiratory failure, unspecified whether with hypoxia or hypercapnia; I13.0 Hypertensive heart and chronic kidney disease with heart failure and stage 1 through stage 4 chronic kidney disease, or unspecified chronic kidney disease; N17.9 Acute kidney failure, unspecified; I48.91 Unspecified atrial fibrillation; N18.3 Chronic kidney disease, stage 3 (moderate); R57.0 Cardiogenic shock; E78.5 Hyperlipidemia, unspecified; T46.0X5A Adverse effect of cardiac-stimulant glycosides and drugs of similar action, initial encounter; Z95.810 Presence of automatic (implantable) cardiac defibrillator; Z98.42 Cataract extraction status, left eye; Z87.891 Personal history of nicotine dependence; Z98.41 Cataract extraction status, right eye; Y92.89 Other specified places as the place of occurrence of the external cause; Z79.01 Long term (current) use of anticoagulants; Z79.899 Other long term (current) drug therapy; Z88.8 Allergy status to other drugs, medicaments and biological substances